=== PATIENT | male | born 1955 | race Caucasian/White ===

== ENCOUNTER → 2023-06-08 | Outpatient (CLI) | payer MEDICARE ==
--- NOTE | 2023-06-09 18:27 | CT ---
EXAMINATION TYPE: CT right knee - [facility] Protocol DATE OF EXAM: 06/08/2023 COMPARISON: None HISTORY: RT Knee [facility] protocol. CT DLP: 593 mGycm Automated exposure control for dose reduction was used. Contrast: None Technique: [facility] presurgical planning of the right knee. Images were obtained in the axial plane at 2 mm thick sections through the hip and ankle and 1 mm thick sections through the knee. Reconstructed i mages in the coronal and sagittal plane are reviewed. FINDINGS: Hip: Femoral head articulates with the acetabulum. No acute fractures evident. Pelvis appears intact. Knee: No acute fractures evident. Minimal joint effusion is present. There is narrowing of the patell ofemoral joint space. There is narrowing of the medial compartment joint space. Lateral compartment j oint space narrowing is present. Vacuum phenomenon is in the lateral compartment. Lateral tibial plat eau and femoral condylar spurring is present. Ankle: Alignment is preserved. No acute fractures are evident. IMPRESSION: 1. CT for [facility] knee presurgical planning. 2. Vacuum joint space phenomenon in the lateral compartment right knee is noted.
== END | disposition home or self-care (01) ==
LOC: RADCTMAIN 15:59
PROVIDERS: ATTEND Orthopaedic Surgery
DX: Z01.818 Encounter for other preprocedural examination (principal); M17.0 Bilateral primary osteoarthritis of knee

== ENCOUNTER → 2024-04-11 | Outpatient (CLI) | payer MEDICARE | END | disposition home or self-care (01) | LOC: LABWHC1 11:33 | PROVIDERS: ATTEND Orthopaedic Surgery | DX: M25.561 Pain in right knee (principal); M17.12 Unilateral primary osteoarthritis, left knee; T84.84XA Pain due to internal orthopedic prosthetic devices, implants and grafts, initial encounter; Z96.651 Presence of right artificial knee joint; Z47.1 Aftercare following joint replacement surgery | CPT/HCPCS: 36415; 85379; 85652; 86140 ==